=== PATIENT | male | born 1960 | race Caucasian/White ===

== ENCOUNTER 2021-12-04 09:50 | Emergency (ER) | payer OTHER ==
[~2021-12-04] VITALS: Ht 193 cm; Wt 104.7 kg
[2021-12-04 10:26] VITALS: BP 136/79
[2021-12-04 10:58] LABS: CLARITY,URINE CLEAR (Clear); COLOR,URINE YELLOW (Yellow); GLUCOSE, URINE NEGATIVE (Neg); KETONES,URINE TRACE mg/dl (Neg); LEUKOCYTE ESTERASE ,URINE NEGATIVE (Neg); NITRITES, URINE NEGATIVE (Neg); OCCULT BLOOD,URINE MODERATE (Neg); PROTEIN,URINE NEGATIVE (Neg); UROBILINOGEN,URINE 0.2 E.U/dL (0.2-1.0)
[2021-12-04 11:13] LABS: UA COLLECTION TYPE CLN CATCH MIDSTREAM
[2021-12-04 11:16] LABS: BACTERIA,URINE NONE SEEN /HPF (Neg); MUCUS STRANDS NONE SEEN /LPF (Neg); RBC,URINE 0-2 /HPF (0-2); SQUAMOUS EPITHELIAL CELL,UR NONE SEEN /LPF (FEW); WBC,URINE NONE SEEN /HPF (0-4)
== END 2021-12-04 15:30 | disposition left against medical advice (07) ==
LOC: ER 09:50
DX: M54.9 Dorsalgia, unspecified (principal); Z53.21 Procedure and treatment not carried out due to patient leaving prior to being seen by health care provider
CPT/HCPCS: 81001